=== PATIENT | male | born 1975 | race Asian ===

== ENCOUNTER 2018-04-02 21:36 | Emergency (ER) | payer MEDICAID ==
[~2018-04-02] VITALS: Ht 170.2 cm; Wt 68.2 kg
[2018-04-02 22:50] VITALS: BP 125/78
[2018-04-02] MEDS ORDERED: IBUPROFEN 600 MG TABLET PO ONE (23:00)
== END 2018-04-02 23:07 | disposition home or self-care (01) ==
LOC: EMS 21:36
DX: S63.512A Sprain of carpal joint of left wrist, initial encounter (principal); M25.532 Pain in left wrist; G56.02 Carpal tunnel syndrome, left upper limb; F17.210 Nicotine dependence, cigarettes, uncomplicated; Z71.6 Tobacco abuse counseling; X58.XXXA Exposure to other specified factors, initial encounter; Y93.89 Activity, other specified; Y92.69 Other specified industrial and construction area as the place of occurrence of the external cause; Y99.8 Other external cause status
CPT/HCPCS: 99284; 99406

== ENCOUNTER 2024-05-23 21:02 | Emergency (ER) | payer MEDICAID ==
[~2024-05-23] VITALS: Ht 170.2 cm; Wt 81.8 kg
[2024-05-24 00:01] VITALS: BP 135/68; PULSE 69; RESP 18; TEMP 97.9; O2SAT 97
[2024-05-24] MEDS: IBUPROFEN 600 MG TABLET PO ONE (00:01)
== END 2024-05-24 00:23 | disposition home or self-care (01) ==
LOC: EMS 21:02
DX: S93.402A Sprain of unspecified ligament of left ankle, initial encounter (principal); F17.210 Nicotine dependence, cigarettes, uncomplicated; X50.1XXA Overexertion from prolonged static or awkward postures, initial encounter; Y93.89 Activity, other specified; Y92.89 Other specified places as the place of occurrence of the external cause; Y99.0 Civilian activity done for income or pay
CPT/HCPCS: 99284